=== PATIENT | male | born 1995 | race Caucasian/White ===

== ENCOUNTER 2019-01-10 20:45 | Emergency (ER) | payer OTHER ==
[2019-01-10 20:50] VITALS: BP 138/75; PULSE 96; TEMP 98.2; BMI 26.4
--- NOTE | 2019-01-10 20:50 | PDOC ---
Rapid Medical Evaluation Time Seen by Provider: 01/10/19 20:48 Medical Evaluation: Allergies Allergy/AdvReac Type Severity Reaction Status Date / Time No Known Allergies Allergy Verified 03/14/16 22:53 01/10/19 20:48 Pt presents to the ED for nose pain. Pt states he got head butted by another player while playing basketball Exam: swelling and TTP of the nose Orders: x-ray Pt to proceed to the ED for further evaluation Discharge Disposition - Diagnosis Nasal pain - Referrals - Patient Instructions - Post Discharge Activity
--- NOTE | 2019-01-10 21:56 | PDOC ---
History of Present Illness - General Chief Complaint: Nasal Bleeding Stated Complaint: POSSIBLE BROKEN NOSE Time Seen by Provider: 01/10/19 20:48 - History of Present Illness Initial Comments: 01/10/19 21:51 23-year-old male without comorbidities presents for evaluation of nasal pain after being elbowed while playing basketball. There was no loss of consciousness post injury nausea vomiting or visual changes he had epistaxis which was with controlled with direct pressure and ice Past History - Past Medical History Allergies/Adverse Reactions: Allergies Allergy/AdvReac Type Severity Reaction Status Date / Time No Known Allergies Allergy Verified 01/10/19 20:50 Home Medications: Ambulatory Orders NK [No Known Home Medication] 03/14/16 COPD: No Thyroid Disease: No - Immunization History Immunization Up to Date: Yes - Suicide/Smoking/Psychosocial Hx Smoking Status: No Smoking History: Never smoked Have you smoked in the past 12 months: No Number of Cigarettes Smoked Daily: 0 Hx Alcohol Use: No Drug/Substance Use Hx: No Substance Use Type: None Review of Systems - Review of Systems HEENTM: Yes: Nose Pain. No: Recent change in vision, Double Vision ABD/GI: No: Nausea, Vomiting Neurological: No: Headache, Dizziness *Physical Exam - Vital Signs Last Vital Signs Temp Pulse Resp BP Pulse Ox 98.2 F 96 H 18 138/75 98 01/10/19 20:48 01/10/19 20:48 01/10/19 20:48 01/10/19 20:48 01/10/19 20:48 - Physical Exam Comments: 01/10/19 21:51 HEAD: NC/AT EYES: Conjuntiva clear NOSE: No d/c dried blooded naris swelling to the bridge of the nose with THROAT: Moist mucous membrances, oral pharanx clear, uvula midline NECK: Supple without adenopathy MS: Full ROM in all joints without edema NEUROLOGIC: No gross sensory or motor deficits, NVID SKIN: Normal color and temperature no lesions or rashes Medical Decision Making - Medical Decision Making 01/10/19 21:55 There are 2 fractures one at the proximal and one at the distal bridge of the nose. *DC/Admit/Observation/Transfer Diagnosis at time of Disposition: Nasal pain, Nasal bone fracture - Discharge Dispostion Disposition: HOME Condition at time of disposition: Stable Decision to Admit order: No - Referrals Referrals: Aidan Crespo [Primary Care Provider] - Neo Iyer MD [Staff Physician] - - Patient Instructions Printed Discharge Instructions: Nose Fracture, DI for Nose Fracture Additional Instructions: Tylenol as directed for pain. Return to the emergency room should symptoms worsen. Please follow-up with plastic surgery for further evaluation and treatment options. - Post Discharge Activity
== END 2019-01-10 22:24 | disposition home or self-care (01) ==
LOC: JERFT 20:45
DX: S02.2XXA Fracture of nasal bones, initial encounter for closed fracture (principal); W50.0XXA Accidental hit or strike by another person, initial encounter; Y93.67 Activity, basketball; Y92.310 Basketball court as the place of occurrence of the external cause; Y99.8 Other external cause status
CPT/HCPCS: 70160-TC-FY; 99281-25

== ENCOUNTER 2019-05-31 17:17 | Emergency (ER) | payer OTHER ==
[2019-05-31] MEDS ORDERED: ACETAMINOPHEN 500 MG TABLET (FP) PO ONE (17:35)
--- NOTE | 2019-05-31 17:35 | PDOC ---
Rapid Medical Evaluation Time Seen by Provider: 05/31/19 17:31 Medical Evaluation: Allergies Allergy/AdvReac Type Severity Reaction Status Date / Time No Known Allergies Allergy Verified 01/10/19 20:50 05/31/19 17:31 HPI: Fever and Headache with blisters on lips started Tuesday PE: No gross deficits ORDERS:Tylenol Discharge Disposition - Diagnosis Fever - Referrals - Patient Instructions - Post Discharge Activity
[2019-05-31 17:42] VITALS: BMI 20.9
[2019-05-31] MEDS ORDERED: ACETAMINOPHEN 500 MG TABLET (FP) ONE (17:57)
--- NOTE | 2019-05-31 18:27 | PDOC ---
History of Present Illness - General Chief Complaint: Cold Symptoms Stated Complaint: FEVER Time Seen by Provider: 05/31/19 17:31 - History of Present Illness Initial Comments: 05/31/19 18:21 CHIEF COMPLAINT: sore throat, fever HISTORY OF PRESENT ILLNESS: 23 yo M with no PMH presents to ED with fever (Tmax 101.4F) and blisters to his lips since Tuesday and sore throat since Tuesday. Patient also reports headache since Tuesday after coming home from [place] in the park. He describes the headache as a sharp pain and mostly on the top of his head and behind his eyes. Patient has taken Tylenol for headache/fever at home which does seem to help. Patient has taken Mucinex and eagle seltzer with temporary relief. No recent travel or sick contacts. PAST MEDICAL HISTORY: Denies past medical history FAMILY HISTORY: Denies SOCIAL HISTORY:Denies tobacco, alcohol, illicit drug use. SURGICAL HISTORY: Denies ALLERGIES: No known drug allergies REVIEW OF SYSTEMS General/Constitutional: Fever and chills, lethargy/fatigue. Denies weight change. HEENT: Sore throat, blisters to lips. Denies change in vision. Denies ear pain or discharge. Cardiovascular: Denies chest pain or shortness of breath. Respiratory: Denies cough, wheezing, or hemoptysis. Gastrointestinal: Nausea. Denies diarrhea or constipation. Denies rectal bleeding. Genitourinary: Denies dysuria, frequency, or change in urination. Musculoskeletal: Denies joint or muscle swelling or pain. Denies neck or back pain. Skin and breasts: Denies rash or easy bruising. Neurologic: Headache x 5 days. Denies vertigo, loss of consciousness, or loss of sensation. PHYSICAL EXAM General Appearance: Well-appearing, appropriately dressed. No apparent distress , no intoxication. HEENT: Vesicular blisters to upper and lower lips. EOMI, PERRLA, normal ENT inspection, normal voice, TMs normal, pharynx normal. No conjunctival pallor. No photophobia, scleral icterus. Neck: Supple. Trachea midline. No tenderness, rigidity, carotid bruit, stridor , lymphadenopathy, or thyromegaly. Respiratory/Chest: Lungs CTAB. No shortness of breath, chest tenderness, respiratory distress, accessory muscle use. No crackles, rales, rhonchi, stridor , wheezing, dullness Cardiovascular: RRR. S1, S2. No JVD, murmur, bradycardia, tachycardia. Vascular Pulses: Dorsalis-Pedis (R): 2+, Dorsalis-Pedis (L): 2+ Gastrointestinal/Abdominal: Normal bowel sounds. Abdomen soft, non-distended. No tenderness or rebound tenderness. No organomegaly, pulsatile mass, guarding , hernia, hepatomegaly, splenomegaly. Lymphatic: No adenopathy, tenderness. Musculoskeletal/Extremities: Normal inspection. FROM of all extremities, normal capillary refill. Pelvis Stable. No CVA tenderness. No tenderness to extremities, pedal edema, swelling, erythema or deformity. Integumentary: Appropriate color, dry, warm. 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 Fully oriented, alert. Appropriate mood/affect. Motor strength 5/5. No appreciable EOM palsy, facial droop or sensory deficit. Past History - Past Medical History Allergies/Adverse Reactions: Allergies Allergy/AdvReac Type Severity Reaction Status Date / Time No Known Allergies Allergy Verified 05/31/19 17:32 Home Medications: Ambulatory Orders Ibuprofen 600 mg PO TID #30 tablet 05/31/19 Valacyclovir HCl [Valtrex] 2 g PO BID #4 tablet 05/31/19 COPD: No Thyroid Disease: No - Immunization History Immunization Up to Date: Yes - Suicide/Smoking/Psychosocial Hx Smoking Status: No Smoking History: Never smoked Have you smoked in the past 12 months: No Number of Cigarettes Smoked Daily: 0 Information on smoking cessation initiated: No Hx Alcohol Use: No Drug/Substance Use Hx: No Substance Use Type: None *Physical Exam - Vital Signs Last Vital Signs Temp Pulse Resp BP Pulse Ox 102.8 F H 104 H 20 130/82 97 05/31/19 17:32 05/31/19 17:32 05/31/19 17:32 05/31/19 17:32 05/31/19 17:32 ED Treatment Course - LABORATORY CBC & Chemistry Diagram: 05/31/19 18:44 05/31/19 18:44 - Medications Given in the ED: ED Medications Discontinued Medications Generic Name Dose Route Start Last Admin Trade Name Freq PRN Reason Stop Dose Admin Acetaminophen 1,000 mg 05/31/19 17:35 05/31/19 18:05 Tylenol - PO 05/31/19 17:36 1,000 mg ONCE ONE Administration Medical Decision Making - Medical Decision Making 05/31/19 18:27 23 yo M with no PMH presents to ED with fever (Tmax 101.4F) and blisters to his lips since Tuesday and sore throat since Tuesday. -basic labs ,strep, monospot 05/31/19 19:39 labs unremarkable. strep negative. 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 valtrex rx sent to pharm. pending mono results. Advised patient to take medication as prescribed and follow up with PCP within the next week. Advised patient of signs and symptoms for return to ED. Patient verbalized understanding and agrees to plan. *DC/Admit/Observation/Transfer Diagnosis at time of Disposition: Viral syndrome, Cold sore Fever Qualifiers: Fever type: unspecified Qualified Code(s): R50.9 - Fever, unspecified - Discharge Dispostion Disposition: HOME Condition at time of disposition: Stable Decision to Admit order: No - Prescriptions Prescriptions: Ibuprofen 600 mg PO TID #30 tablet Valacyclovir HCl [Valtrex] 2 g PO BID #4 tablet - Referrals Referrals: Aidan Crespo [Primary Care Provider] - - Patient Instructions Printed Discharge Instructions: DI for Cold Sores, DI for Viral Syndrome Additional Instructions: Please take medications as prescribed. Drink plenty of fluids and get rest for the next few days. If you develop any new or worsening symptoms, please return to the ER. - Post Discharge Activity Forms/Work/School Notes: Back to Work
[2019-05-31 18:57] LABS: BASO % 0.2 % (0-2.0); EOS % 0.7 % (0-4.5); HEMATOCRIT 45.2 % (35.4-49); HEMOGLOBIN 15.4 GM/dL (11.7-16.9); LYMPH % 10.3 % (8-40); MCH 28.2 pg (25.7-33.7); MEAN CELL VOLUME 82.9 fl (80-96); MEAN PLT VOLUME 9.6 fl (7.5-11.1); MONO % 12.4 % (3.8-10.2); NEUT % 76.4 % (42.8-82.8); PLATELET COUNT 166 K/MM3 (134-434); RBC 5.45 M/mm3 (4.00-5.60); RDW 13.2 % (11.9-15.9); WHITE BLOOD COUNT 10.4 K/mm3 (4.0-10.0)
[2019-05-31 19:20] LABS: BILIRUBIN,TOTAL 1.2 mg/dL (0.2-1); BLOOD UREA NITROGEN 12.5 mg/dL (7-18); CREATININE 0.9 mg/dL (0.55-1.3); POTASSIUM 3.6 mmol/L (3.5-5.1); TOT PROT 7.7 g/dl (6.4-8.2)
[2019-05-31 20:08] VITALS: BP 107/68; PULSE 93; TEMP 99.7
== END 2019-05-31 19:52 | disposition home or self-care (01) ==
LOC: JER 17:17
DX: R50.9 Fever, unspecified (principal); B00.1 Herpesviral vesicular dermatitis; B34.9 Viral infection, unspecified
CPT/HCPCS: 36415; 80053; 85025; 86308; 87070; 87880; 99283-25

== ENCOUNTER 2023-11-11 20:28 | Emergency (ER) | payer OTHER ==
[2023-11-11 20:34] VITALS: BP 139/82; PULSE 75; RESP 18; TEMP 98.2; BMI 27.8
[2023-11-11] MEDS ORDERED: ACETAMINOPHEN 500 MG TABLET (FP) PO ONE (21:23)
[2023-11-11] MEDS ORDERED: ACETAMINOPHEN 500 MG TABLET (FP) ONE (21:26)
== END 2023-11-11 21:41 | disposition home or self-care (01) ==
LOC: JERFT 20:28
DX: S09.92XA Unspecified injury of nose, initial encounter (principal); J34.89 Other specified disorders of nose and nasal sinuses; R04.0 Epistaxis; W51.XXXA Accidental striking against or bumped into by another person, initial encounter
CPT/HCPCS: 99283-25

== ENCOUNTER 2024-02-20 04:29 | Day surgery (SDC) | payer OTHER ==
[2024-02-17 13:34] VITALS: BMI 27.8
[2024-02-20] MEDS ORDERED: LIDOCAINE 1%/EPI 1:100000 (20 ML MULTI DOSE VIAL) ONE (09:39)
[2024-02-20] MEDS ORDERED: BUPIVACAINE HCL/PF 0.5% (5MG/ML) 10 ML VIAL ONE (09:39)
[2024-02-20] MEDS ORDERED: PROPOFOL 20 ML ONE (10:09)
[2024-02-20] MEDS ORDERED: ROCURONIUM BROMIDE 50 MG/5 ML SYRINGE ONE (10:09)
[2024-02-20] MEDS ORDERED: LIDOCAINE HCL/PF 2% SDV 5ML VIAL ONE (10:10)
[2024-02-20] MEDS ORDERED: PROPOFOL 40 ML ONE (11:30)
[2024-02-20] MEDS ORDERED: MIDAZOLAM HCL 2 MG/2 ML SINGLE DOSE VIAL ONE (11:30)
[2024-02-20] MEDS ORDERED: FENTANYL CITRATE/PF 50 MCG/ML VIAL ONE ×2 (11:30→12:01)
[2024-02-20] MEDS ORDERED: DEXAMETHASONE SOD PHOSPHATE 4 MG/1 ML VIAL ONE (11:45)
[2024-02-20] MEDS ORDERED: ONDANSETRON 4 MG/2 ML VIAL ONE (11:45)
[2024-02-20] MEDS ORDERED: ceFAZolin SODIUM 1 GM VIAL ONE (11:48)
[2024-02-20] MEDS: ceFAZolin SODIUM 1 GM VIAL IVPB ONE ×2 (11:50)
[2024-02-20] MEDS: BUPIVACAINE HCL/PF 0.5% (5 MG/ML) 30 ML VIAL IJ ONE (11:58)
[2024-02-20] MEDS: LIDOCAINE 1%/EPI 1:100000 (20 ML MULTI DOSE VIAL) IJ ONE (11:58)
[2024-02-20] MEDS ORDERED: GLYCOPYRROLATE 0.2 MG/1 ML VIAL ONE (12:05)
[2024-02-20] MEDS ORDERED: ONDANSETRON 4 MG/2 ML VIAL IVPUSH PRN (12:14)
[2024-02-20] MEDS ORDERED: oxyCODONE HCL 5 MG TABLET PO PRN (12:14)
[2024-02-20] MEDS ORDERED: LACTATED RINGERS SOLUTION 1,000 ML IV SCH (12:15)
[2024-02-20] MEDS ORDERED: KETOROLAC TROMETHAMINE 30 MG/1 ML VIAL ONE (12:17)
[2024-02-20] MEDS: CEFAZOLIN SODIUM 2 GM in DEXTROSE 5%-WATER 100 ML IVPB ONE (14:21)
[2024-02-20 16:33] VITALS: RESP 18
[2024-02-20 16:36] VITALS: BP 116/63; PULSE 57; TEMP 97.8
== END 2024-02-20 15:07 | disposition home or self-care (01) ==
LOC: JASU-SURG 04:29
PROVIDERS: ATTEND Surgery
PROC: 0JB70ZZ Excision of Back Subcutaneous Tissue and Fascia, Open Approach (ICD-10-PCS; principal; 2024-02-20 10:30)
DX: D17.1 Benign lipomatous neoplasm of skin and subcutaneous tissue of trunk (principal)
CPT/HCPCS: 88304-TC; 94760